=== PATIENT | male | born 1965 | race Caucasian/White ===

== ENCOUNTER 2018-11-28 21:08 | Outpatient (REF) | payer BC, SELFPAY ==
[2018-11-28 21:20] LABS: Cholesterol 184 mg/dL (50-200); Glucose 104 mg/dL (70-100); HDL Cholesterol 35 mg/dL (40-60); LDL CHOLESTEROL 130 mg/dL (<100); Triglyceride 86 mg/dL (30-150)
== END 2018-11-28 21:28 ==
LOC: NCHCN 21:08
PROVIDERS: PCP Internal Medicine; Visit Provider Internal Medicine
DX: I10 Essential (primary) hypertension (principal)
CPT/HCPCS: 80061; 82947; 83721

== ENCOUNTER 2021-01-12 16:33 | Outpatient (REF) | payer BC, SELFPAY ==
[2021-01-12 22:34] LABS: Hemoglobin A1C 5.6 % (<5.7)
[2021-01-12 22:45] LABS: ALT 37 U/L (16-63); AST 20 U/L (15-37); Albumin 4.2 g/dL (3.4-5.0); Alkaline Phosphatase 54 U/L (46-116); Anion Gap 10.9 mmol/L (3-11); BUN 16 mg/dL (7-18); Bilirubin, Total 0.5 mg/dL (0.2-1.0); CO2 26.1 mmol/L (21.0-32.0); Calcium 9.7 mg/dL (8.5-10.1); Chloride 105 mmol/L (98-107); Glucose 94 mg/dL (74-106); Potassium 3.6 mmol/L (3.5-5.1); Sodium 142 mmol/L (136-145); Total Protein 7.6 g/dL (6.4-8.2)
[2021-01-12 23:01] LABS: Calculated LDL 122 mg/dL (<100); Cholesterol 189 mg/dL (<200); HDL Cholesterol 35 mg/dL (40-60); Triglyceride 162 mg/dL (<150)
== END 2021-01-12 16:34 | disposition home or self-care (01) ==
LOC: NCHCN 16:33
PROVIDERS: PCP Internal Medicine; Visit Provider Internal Medicine
DX: I10 Essential (primary) hypertension (principal); K76.0 Fatty (change of) liver, not elsewhere classified; E66.9 Obesity, unspecified; N40.0 Benign prostatic hyperplasia without lower urinary tract symptoms
CPT/HCPCS: 80053; 80061; 83036

== ENCOUNTER 2021-10-26 18:21 | Outpatient (REF) | payer BC, SELFPAY ==
[2021-10-26 22:31] LABS: Calculated LDL 117 mg/dL (<100); Cholesterol 178 mg/dL (<200); HDL Cholesterol 41 mg/dL (40-60); Triglyceride 101 mg/dL (<150)
== END 2021-10-26 18:22 | disposition home or self-care (01) ==
LOC: NCHCN 18:21
PROVIDERS: PCP Internal Medicine; Visit Provider Internal Medicine
DX: E78.5 Hyperlipidemia, unspecified (principal)
CPT/HCPCS: 80061

== ENCOUNTER 2022-11-08 16:48 | Outpatient (REF) | payer BC, SELFPAY ==
[2022-11-08 15:04] LABS: Anion Gap 9.6 mmol/L (3-11); BUN 13 mg/dL (7-18); CO2 27.4 mmol/L (21.0-32.0); Calcium 9.6 mg/dL (8.5-10.1); Calculated LDL 139 mg/dL (<100); Chloride 106 mmol/L (98-107); Cholesterol 213 mg/dL (<200); Glucose 126 mg/dL (74-106); HDL Cholesterol 39 mg/dL (40-60); Potassium 3.8 mmol/L (3.5-5.1); Sodium 143 mmol/L (136-145); Triglyceride 177 mg/dL (<150)
== END 2022-11-08 16:49 | disposition home or self-care (01) ==
LOC: NCHCN 16:48
PROVIDERS: PCP Internal Medicine; Visit Provider Nurse Practitioner Family
DX: I10 Essential (primary) hypertension (principal); E78.5 Hyperlipidemia, unspecified; Z00.00 Encounter for general adult medical examination without abnormal findings
CPT/HCPCS: 80048; 80061

== ENCOUNTER 2023-11-12 15:25 | Outpatient (REF) | payer BC, SELFPAY ==
[2023-11-12 14:52] LABS: HCT 46.2 % (40.0-50.0); MCH 30.7 pg (27.0-33.0); MCHC 34.6 % (32.0-36.0); MCV 89 fL (80-95); MPV 10.7 fL (8.0-11.0); Platelet Count 171 10^3/uL (130-400); RBC 5.22 10^6/uL (4.36-5.78); RDW 12.5 % (11.8-14.1); RDW-SD 40.8 fL; WBC 5.09 10^3/uL (4.4-10.8)
[2023-11-12 15:00] LABS: ALT 51 U/L (16-63); AST 30 U/L (15-37); Albumin 4.2 g/dL (3.4-5.0); Alkaline Phosphatase 53 U/L (46-116); Anion Gap 7.7 mmol/L (3-11); BUN 14 mg/dL (7-18); Bilirubin, Total 0.8 mg/dL (0.2-1.0); CO2 29.3 mmol/L (21.0-32.0); CREATININE 1.2 mg/dL (0.70-1.30); Calcium 9.7 mg/dL (8.5-10.1); Calculated LDL 76 mg/dL (<100); Chloride 105 mmol/L (98-107); Cholesterol 139 mg/dL (<200); Estimated GFR 69.23 (mL/min/1.73m2); Glucose 125 mg/dL (74-106); HDL Cholesterol 44 mg/dL (40-60); Sodium 142 mmol/L (136-145); Total Protein 7.6 g/dL (6.4-8.2); Triglyceride 97 mg/dL (<150)
== END 2023-11-12 15:26 | disposition home or self-care (01) ==
LOC: NCHCN 15:25
PROVIDERS: PCP Internal Medicine; Visit Provider Internal Medicine
DX: Z00.00 Encounter for general adult medical examination without abnormal findings (principal); Z13.0 Encounter for screening for diseases of the blood and blood-forming organs and certain disorders involving the immune mechanism; Z13.220 Encounter for screening for lipoid disorders; Z13.228 Encounter for screening for other metabolic disorders
CPT/HCPCS: 80053; 80061; 85027

== ENCOUNTER 2024-11-25 11:28 | Outpatient (REF) | payer BC, SELFPAY ==
[2024-11-25 14:50] LABS: HGB 16.1 g/dL (13.5-17.5); MCH 31.4 pg (27.0-33.0); MCV 90 fL (80-95); MPV 10.3 fL (8.0-11.0); Platelet Count 165 10^3/uL (130-400); RBC 5.13 10^6/uL (4.36-5.78); RDW 11.9 % (11.8-14.1); RDW-SD 38.8 fL; WBC 5.58 10^3/uL (4.4-10.8)
[2024-11-25 15:27] LABS: ALT 54 U/L (16-63); AST 29 U/L (15-37); Albumin 4.2 g/dL (3.4-5.0); Alkaline Phosphatase 52 U/L (46-116); Anion Gap 7.1 mmol/L (3-11); BUN 15 mg/dL (7-18); Bilirubin, Total 0.7 mg/dL (0.2-1.0); CO2 30.9 mmol/L (21.0-32.0); CREATININE 1.2 mg/dL (0.70-1.30); Calcium 9.5 mg/dL (8.5-10.1); Calculated LDL 59 mg/dL (<100); Chloride 107 mmol/L (98-107); Cholesterol 114 mg/dL (<200); Glucose 128 mg/dL (74-106); HDL Cholesterol 45 mg/dL (>or=40); Potassium 4.2 mmol/L (3.5-5.1); Sodium 145 mmol/L (136-145); Total Protein 7.4 g/dL (6.4-8.2); Triglyceride 54 mg/dL (<150)
[2024-11-25 15:37] LABS: Hemoglobin A1C 5.6 % (<5.7)
== END 2024-11-25 11:29 | disposition home or self-care (01) ==
LOC: NCHCN 11:28
PROVIDERS: PCP Internal Medicine; Visit Provider Internal Medicine
DX: Z00.00 Encounter for general adult medical examination without abnormal findings (principal); E78.5 Hyperlipidemia, unspecified
CPT/HCPCS: 80053; 80061; 85027; 83036

== ENCOUNTER 2025-04-03 09:57 | Outpatient (REF) | payer BC, SELFPAY | END 2025-04-03 09:58 | disposition home or self-care (01) | LOC: NCHCN 09:57 | PROVIDERS: PCP Internal Medicine; Visit Provider Family Medicine | DX: R30.0 Dysuria (principal) | CPT/HCPCS: 87077; 87086; 87186 ==

== ENCOUNTER 2025-04-27 16:24 | Outpatient (REF) | payer BC, SELFPAY | END 2025-04-27 16:25 | disposition home or self-care (01) | LOC: NCHCN 16:24 | PROVIDERS: PCP Internal Medicine; Visit Provider Internal Medicine | DX: R39.9 Unspecified symptoms and signs involving the genitourinary system (principal) | CPT/HCPCS: 87086 ==